=== PATIENT | female | born 1985 | race Hispanic/Latino ===

== ENCOUNTER → 2024-02-12 09:15 | Outpatient (REF) | payer OTHER, SELFPAY ==
[2024-02-12 11:04] LABS: Glycohemoglobin (HgbA1c) 5.5 % (4.0-5.6)
[2024-02-12 12:08] LABS: ALT (SGPT) 14 U/L (0-35); AST (SGOT) 18 U/L (14-36); Albumin 4.2 g/dl (3.5-5.0); Alkaline Phosphatase 78 U/L (38-126); Blood Urea Nitrogen 15 mg/dl (7-17); Calcium 9.4 mg/dl (8.4-10.2); Carbon Dioxide 26 mmol/L (22-30); Chloride 103 mmol/L (98-107); Glucose 93 mg/dl (70-99); Potassium 5.1 mmol/L (3.5-5.1); Sodium 136 mmol/L (135-145); Total Bilirubin 0.3 mg/dl (0.2-1.3); Total Protein 7.1 g/dl (6.3-8.2); eGFR > 60.00
== END ==
LOC: REG 09:15
PROVIDERS: ATTENDING PHYSICIAN Nurse Practitioner Acute Care
DX: R73.03 Prediabetes (principal)
CPT/HCPCS: 36415; 80053; 83036